=== PATIENT | female | born 1975 | race Caucasian/White ===

== ENCOUNTER 2019-07-03 22:43 | Emergency (ER) | payer OTHER ==
[2019-07-03] MEDS ORDERED: Sodium Chloride 0.9% 1,000 ML IV ONE (22:51)
[2019-07-03] MEDS ORDERED: Ketorolac 30 MG/ML SDV IVPUSH ONE (22:51)
[2019-07-03] MEDS ORDERED: Metoclopramide 10 MG/2 ML SDV IVPUSH ONE (22:51)
[2019-07-03] MEDS ORDERED: diphenhydrAMINE 50 MG/ML SDV IVPUSH ONE (22:52)
--- NOTE | 2019-07-03 23:05 | EDM.PDOC ---
ED HPI GENERAL MEDICAL PROBLEM - General Chief Complaint: Headache Stated Complaint: MIGRAINE Time Seen by Provider: 07/03/19 22:56 - History of Present Illness INITIAL COMMENTS - FREE TEXT/NARRATIVE: HISTORY AND PHYSICAL: History of present illness: Patient's a 43-year-old female with history migraine headaches presents with a concern of migraine she has associated photophobia and nausea denies other concern additional fever no chills no neck pain or stiffness or other complaints Review of systems: As per history of present illness and below otherwise all systems reviewed and negative. Past medical history: As per history of present illness and as reviewed below otherwise noncontributory. Surgical history: As per history of present illness and as reviewed below otherwise noncontributory. Social history: No reported history of drug or alcohol abuse. Family history: As per history of present illness and as reviewed below otherwise noncontributory. Physical exam: HEENT: Atraumatic, normocephalic, pupils reactive, negative for conjunctival pallor or scleral icterus, mucous membranes moist, throat clear, neck supple, nontender, trachea midline. Lungs: Clear to auscultation, breath sounds equal bilaterally, chest nontender. Heart: S1S2, regular, negative for clicks, rubs, or JVD. Abdomen: Soft, nondistended, nontender. Negative for masses or hepatosplenomegaly. Negative for costovertebral tenderness. Pelvis: Stable nontender. Genitourinary: Deferred. Rectal: Deferred. Extremities: Atraumatic, negative for cords or calf pain. Neurovascular unremarkable. Neuro: Awake, alert, oriented. Cranial nerves II through XII unremarkable. Cerebellum unremarkable. Motor and sensory unremarkable throughout. Exam nonfocal. Diagnostics: None Therapeutics: Saline 1 L bolus Reglan 10 mg IV Benadryl 50 mg IV Toradol 30 mg IV Zofran 4 mg IV Impression: Migraine headache Definitive disposition and diagnosis as appropriate pending reevaluation and review of above. Treatments WET WHEELER: Reports: NSAIDS head Pain Score (Numeric/FACES): 7 - Related Data Allergies Allergy/AdvReac Type Severity Reaction Status Date / Time amoxicillin trihydrate Allergy Hives Verified 07/03/19 22:57 [From Augmentin] morphine Allergy Itching Verified 07/03/19 22:57 potassium clavulanate Allergy Hives Verified 07/03/19 22:57 [From Augmentin] Sulfa (Sulfonamide Allergy Mouth Sores Verified 07/03/19 22:57 Antibiotics) Home Meds: Home Meds Topiramate 25 mg PO BEDTIME 12/07/13 [History] Past Medical History HEENT History: Reports: Other (See Below) Other HEENT History: Parotid gland problems Cardiovascular History: Reports: None Respiratory History: Reports: None Gastrointestinal History: Reports: None Genitourinary History: Reports: None GRAVE DIGGER History: Reports: None Musculoskeletal History: Reports: Other (See Below) Other Musculoskeletal History: Osteonecrosis in left foot Neurological History: Reports: Migraines Psychiatric History: Reports: Anxiety Endocrine/Metabolic History: Reports: Other (See Below) Other Endocrine/Metabolic History: Bishets Autoimmune Disease Hematologic History: Reports: None Immunologic History: Reports: None Oncologic (Cancer) History: Reports: None Dermatologic History: Reports: None - Infectious Disease History Infectious Disease History: Reports: Chicken Pox - Past Surgical History GI Surgical History: Reports: Appendectomy, Cholecystectomy Social & Family History - Family History Family Medical History: Noncontributory - Tobacco Use Smoking Status *Q: Never Smoker - Caffeine Use Caffeine Use: Reports: None - Recreational Drug Use Recreational Drug Use: No ED ROS GENERAL - Review of Systems Review Of Systems: Comprehensive ROS is negative, except as noted in HPI. ED EXAM, GENERAL - Physical Exam Exam: See Below (See dictation) Course - Vital Signs Last Recorded V/S: Last Vital Signs Temp 36.1 C 07/03/19 22:43 Pulse 104 H 07/03/19 22:43 Resp 18 07/03/19 22:43 BP 147/89 H 07/03/19 22:43 Pulse Ox 98 07/03/19 22:43 - Orders/Labs/Meds Orders: Active Orders 24 hr Category Date Time Status Sodium Chloride 0.9% [Normal Saline] 1,000 ml Med 07/03/19 22:51 Active IV .Bolus Medication Orders Sodium Chloride (Normal Saline) 1,000 mls @ 999 mls/hr IV .Bolus ONE Stop: 07/03/19 23:51 Last Admin: 07/03/19 23:00 Dose: 999 mls/hr Meds: Medications Generic Name Dose Route Start Last Admin Trade Name Freq PRN Reason Stop Dose Admin Sodium Chloride 1,000 mls @ 999 mls/hr 07/03/19 22:51 07/03/19 23:00 Normal Saline IV 07/03/19 23:51 999 mls/hr .Bolus ONE Administration Discontinued Medications Generic Name Dose Route Start Last Admin Trade Name Cathy MARTIN Reason Stop Dose Admin Diphenhydramine HCl 50 mg 07/03/19 22:52 07/03/19 23:02 Benadryl IVPUSH 07/03/19 22:53 50 mg ONETIME ONE Administration Ketorolac Tromethamine 30 mg 07/03/19 22:51 07/03/19 23:00 Toradol IVPUSH 07/03/19 22:52 30 mg ONETIME ONE Administration Metoclopramide HCl 10 mg 07/03/19 22:51 07/03/19 23:04 Reglan IVPUSH 07/03/19 22:52 10 mg ONETIME ONE Administration Departure - Departure Time of Disposition: 23:06 Disposition: Home, Self-Care 01 Condition: Good Clinical Impression: Migraine headache - Discharge Information Referrals: PCP,Unknown [Primary Care Provider] - Forms: ED Department Discharge Additional Instructions: The following information is given to patients seen in the emergency department who are being discharged to home. This information is to outline your options for follow-up care. We provide all patients seen in our emergency department with a follow-up referral. The need for follow-up, as well as the timing and circumstances, are variable depending upon the specifics of your emergency department visit. If you don't have a primary care physician on staff, we will provide you with a referral. We always advise you to contact your personal physician following an emergency department visit to inform them of the circumstance of the visit and for follow-up with them and/or the need for any referrals to a consulting specialist. The emergency department will also refer you to a specialist when appropriate. This referral assures that you have the opportunity for followup care with a specialist. All of these measure are taken in an effort to provide you with optimal care, which includes your followup. Under all circumstances we always encourage you to contact your private physician who remains a resource for coordinating your care. When calling for followup care, please make the office aware that this follow-up is from your recent emergency room visit. If for any reason you are refused follow-up, please contact the [facility] emergency department at and asked to speak to the emergency department charge nurse. Continue current medications follow primary medical doctor return as needed as discussed - My Orders Last 24 Hours: My Active Orders 07/03/19 22:51 Sodium Chloride 0.9% [Normal Saline] 1,000 ml IV .Bolus - Assessment/Plan Last 24 Hours: My Active Orders 07/03/19 22:51 Sodium Chloride 0.9% [Normal Saline] 1,000 ml IV .Bolus
[2019-07-03] MEDS ORDERED: Ondansetron 4 MG/2 ML SDV IVPUSH ONE (23:27)
[2019-07-03 23:55] VITALS: BP 114/65; PULSE 90
== END 2019-07-03 23:59 | disposition home or self-care (01) ==
LOC: MW.ED 22:43
DX: G43.909 Migraine, unspecified, not intractable, without status migrainosus (principal); Z88.1 Allergy status to other antibiotic agents; Z88.5 Allergy status to narcotic agent; Z88.8 Allergy status to other drugs, medicaments and biological substances
CPT/HCPCS: 96361; 96374; 96375; 99284; J1200; J1885; J2405; J2765; J7040

== ENCOUNTER 2021-07-26 07:43 | Emergency (ER) | payer OTHER ==
--- NOTE | 2021-07-26 08:16 | EDM.PDOC ---
ED HPI GENERAL MEDICAL PROBLEM - General Chief Complaint: Respiratory Problem Stated Complaint: COVID SOB Time Seen by Provider: 07/26/21 08:05 Source of Information: Reports: Patient - History of Present Illness INITIAL COMMENTS - FREE TEXT/NARRATIVE: Patient presents with symptoms of cough sore throat body aches and Covid positive since Friday. She is complaining that she has been sets and has sore throat when she swallows. Moderate symptoms, no exacerbating or relieving factors. Patient is set up with her primary care doctor in the infusion center to receive her an infusion but she is not heard from them. h/o behcets dx throat Pain Score (Numeric/FACES): 8 - Related Data Allergies Allergy/AdvReac Type Severity Reaction Status Date / Time amoxicillin trihydrate Allergy Hives Verified 07/26/21 08:01 [From Augmentin] morphine Allergy Itching Verified 07/26/21 08:01 potassium clavulanate Allergy Hives Verified 07/26/21 08:01 [From Augmentin] Sulfa (Sulfonamide Allergy Mouth Sores Verified 07/26/21 08:01 Antibiotics) Home Meds: Home Meds ALPRAZolam [Alprazolam ER] 1 mg PO ASDIRECTED 07/26/21 [History] Control 1 tab PO ASDIRECTED 07/26/21 [History] Meloxicam 15 mg PO ASDIRECTED 07/26/21 [History] buPROPion [Wellbutrin SR] 200 mg PO BID 07/26/21 [History] Past Medical History HEENT History: Reports: Other (See Below) Other HEENT History: Parotid gland problems Cardiovascular History: Reports: None Respiratory History: Reports: None Gastrointestinal History: Reports: None Genitourinary History: Reports: None POLICE CHIEF History: Reports: Musculoskeletal History: Reports: Other (See Below) Other Musculoskeletal History: Osteonecrosis in left foot Neurological History: Reports: Migraines Psychiatric History: Reports: Anxiety Endocrine/Metabolic History: Reports: Other (See Below) Other Endocrine/Metabolic History: Bishets Autoimmune Disease Hematologic History: Reports: None Immunologic History: Reports: None Oncologic (Cancer) History: Reports: None Dermatologic History: Reports: None - Infectious Disease History Infectious Disease History: Reports: Chicken Pox - Past Surgical History Head Surgeries/Procedures: Reports: None HEENT Surgical History: Reports: None Cardiovascular Surgical History: Reports: None Respiratory Surgical History: Reports: None GI Surgical History: Reports: Appendectomy, Cholecystectomy Female Surgical History: Reports: Section Endocrine Surgical History: Reports: None Neurological Surgical History: Reports: None Musculoskeletal Surgical History: Reports: Other (See Below) Other Musculoskeletal Surgeries/Procedures:: 1st metatarsal osteotomy Oncologic Surgical History: Reports: None Dermatological Surgical History: Reports: None Social & Family History - Family History Family Medical History: No Pertinent Family History - Caffeine Use Caffeine Use: Reports: None - Recreational Drug Use Recreational Drug Use: No ED ROS GENERAL - Review of Systems Review Of Systems: Comprehensive ROS is negative, except as noted in HPI. ED EXAM, GENERAL - Physical Exam Exam: See Below Free Text/Narrative:: CONSTITUTIONAL: well appearing in no acute distress SKIN: Warm, dry, and intact without rash HENT: Normocephalic, atraumatic,. Oropharynx is clear without marked lesions or erythema or peritonsillar abscess PULMONARY: clear to ausculation bilaterally. No rales, rhonchi, wheezing CARDIOVASCULAR: regular rate, No murmur, rubs, or gallops GASTROINTESTINAL: soft, nondistended, nontender NEUROLOGIC: normal speech, II-XII intact. light touch/5/5 power equal and symmetric in upper and lower extremities without deficit MUSCULOSKELETAL: no gross deformities, atraumatic PSYCHIATRIC: normal mood and affect Course - Vital Signs Text/Narrative:: Patient presents as outlined above. Patient is having sore throat and she is advised to consider trying Maalox to coat her throat if she is having difficulty swallowing. Otherwise the patient is very well-appearing and nontoxic. No adventitious breath sounds and O2 saturation at good levels. Patient is set up with the infusion center she states. She is encouraged to contact them and/or the primary care doctor to facilitate this as we do not do it here in the emergency department. Otherwise patient is well-appearing and nontoxic. Supportive care with return precautions and PCP follow-up. Last Recorded V/S: Last Vital Signs Temp 36.4 C 07/26/21 07:58 Pulse 94 07/26/21 07:58 Resp 18 07/26/21 07:58 BP 97/70 07/26/21 07:58 Pulse Ox 97 07/26/21 07:58 Departure - Departure Time of Disposition: 08:14 Disposition: Home, Self-Care 01 Condition: Good Clinical Impression: COVID-19 - Discharge Information Instructions: COVID-19: What to Do If You Are Sick- [facility] (10/25/2020) Referrals: PCP,Not In Area [Primary Care Provider] - Additional Instructions: Return for any shortness of breath, change or worsening condition. Contact your primary care doctor and infusion center to receive your monoclonal antibody infusion. The following information is given to patients seen in the emergency department who are being discharged to home. This information is to outline your options for follow-up care. We provide all patients seen in our emergency department with a follow-up referral. The need for follow-up, as well as the timing and circumstances, are variable depending upon the specifics of your emergency department visit. If you don't have a primary care physician on staff, we will provide you with a referral. We always advise you to contact your personal physician following an emergency department visit to inform them of the circumstance of the visit and for follow-up with them and/or the need for any referrals to a consulting specialist. The emergency department will also refer you to a specialist when appropriate. This referral assures that you have the opportunity for follow-up care with a specialist. All of these measure are taken in an effort to provide you with optimal care, which includes your follow-up. Primary care clinics in the area: [facility] - Primary [facility] [address] [place] [id number] [facility] [address] [place] [id number] Under all circumstances we always encourage you to contact your private physician who remains a resource for coordinating your care. When calling for follow-up care, please make the office aware that this follow-up is from your recent emergency room visit. If for any reason you are refused follow-up, please contact the [facility] Emergency Department at and asked to speak to the emergency department charge nurse. Sepsis Event Note (ED) - Evaluation Sepsis Screening Result: No Definite Risk - Focused Exam Vital Signs: Vital Signs Temp Pulse Resp BP Pulse Ox 07/26/21 07:58 36.4 C 94 18 97/70 97
[2021-07-26 08:34] VITALS: BP 105/60; PULSE 96
== END 2021-07-26 08:34 | disposition home or self-care (01) ==
LOC: MW.ED 07:43
DX: U07.1 COVID-19 (principal); Z88.0 Allergy status to penicillin; Z88.5 Allergy status to narcotic agent; Z88.2 Allergy status to sulfonamides
CPT/HCPCS: 99283